=== PATIENT | male | born 1960 | race Caucasian/White ===

== ENCOUNTER 2023-04-05 10:27 | Day surgery (SDC) | payer MEDICARE ==
[~2023-04-05] VITALS: Ht 177.8 cm; Wt 60.2 kg
[2023-04-05] MEDS ORDERED: METF500 (10:53)
[2023-04-05] MEDS ORDERED: LOSA25 (10:53)
[2023-04-05] MEDS ORDERED: BASAGLAR K100 UNIT/1 (10:53)
[2023-04-05 12:19] VITALS: BP 110/84
--- NOTE | 2023-04-05 12:23 | NUR ---
04/05/23 1223 Randi Rebolledo PT'S IV D/C'D WITH CATH TIP INTACT, NO SWELLING OR BRUSING NOTED.
== END 2023-04-05 12:27 | disposition home or self-care (01) ==
LOC: ORSCSDS 10:27
PROVIDERS: Internal Medicine Gastroenterology
PROC: 0DBL8ZX Excision of Transverse Colon, Via Natural or Artificial Opening Endoscopic, Diagnostic (ICD-10-PCS; principal; 2023-04-05 11:45)
DX: R10.32 Left lower quadrant pain (principal); D12.3 Benign neoplasm of transverse colon; K57.30 Diverticulosis of large intestine without perforation or abscess without bleeding; F17.210 Nicotine dependence, cigarettes, uncomplicated; E11.9 Type 2 diabetes mellitus without complications; I10 Essential (primary) hypertension; Z79.84 Long term (current) use of oral hypoglycemic drugs; Z79.4 Long term (current) use of insulin; Z79.899 Other long term (current) drug therapy
CPT/HCPCS: 82947; 88305; J2704; J7120